=== PATIENT | female | born 1950 | race Caucasian/White ===

== ENCOUNTER 2017-07-27 19:35 | Emergency (ER) | payer OTHER ==
[~2017-07-27] VITALS: Ht 165.1 cm; Wt 59.0 kg
--- NOTE | ~2017-07-27 | EKG ---
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 : 1950 Requested By: Jamaal Torres Order Number: [id number] MD: Juan Carlos Barbour Measurements Intervals [place] Rate: 60 P: 21 [place]: 146 QRS: 57 QRSD: 105 T: 32 QT: 428 QTc: 428 Interpretive Statements Sinus rhythm No significant abnormality Compared to ECG 12/07/2014 05:55:59 Sinus bradycardia no longer present Electronically Signed On 07-28-2017 9:02:30 MIMEOGRAPH OPERATOR by Juan Carlos Barbour [email or web address] <ELECTRONICALLY SIGNED> By: Juan Carlos Barbour MD, [facility] 07/28/17901 99 99 Juan Carlos Barbour MD, FACC /EPI
[~2017-07-27 19:35] MED LIST: CLARITIN10 MG PO; XANAX 0.5 MG0.5 MG PO; ZOLOFT50 MG
[2017-07-27] MEDS ORDERED: XANAX 0.25 MG0.25 MG PO (19:58)
[2017-07-27 20:56] LABS: ABSOLUTE NEUTROPHILS 3.1 thou/uL (1.4-8.2); BASOPHILS 0.8 % (0.0-2.0); HEMATOCRIT 37.6 % (37.0-47.0); HEMOGLOBIN 13.2 gm/dL (12.0-15.0); LYMPHOCYTES 29.2 % (24.0-44.0); MCH 30.4 pg (26.0-34.0); MCHC 35.2 g/dL (28.0-37.0); MCV 86.3 fL (80.0-100.0); MONOCYTES 8.1 % (1.0-8.0); PLATELET COUNT 240 thou/uL (150-400); POLYS 59.9 % (36.0-66.0); RBC 4.35 mil/uL (4.20-5.00); RDW 13.7 % (10.5-14.5); WBC 5.2 thou/uL (4.0-11.0)
[2017-07-27 21:04] LABS: ANION GAP 6 mmol/L (7-16); BUN 22 mg/dL (7-18); CALCIUM 9.1 mg/dL (8.5-10.1); CHLORIDE 104 mmol/L (98-107); CO2 26 mmol/L (21-32); GLUCOSE 155 mg/dL (74-106); POTASSIUM 3.3 mmol/L (3.5-5.1); SODIUM 136 mmol/L (136-145)
[2017-07-27 21:12] LABS: ALBUMIN 3.9 g/dL (3.4-5.0); SGOT 18 U/L (15-37); SGPT 25 U/L (30-65); TOTAL BILIRUBIN 0.2 mg/dL (<0.1-1.0); TOTAL PROTEIN 7.1 g/dL (6.4-8.2); TROPONIN-I < 0.04 ng/mL (<0.06)
== END 2017-07-27 22:05 | disposition home or self-care (01) ==
LOC: ER 19:35
PROVIDERS: Physician Assistant
DX: I49.3 Ventricular premature depolarization (principal); F41.9 Anxiety disorder, unspecified